=== PATIENT | male | born 1960 | race African-American/Black ===

== ENCOUNTER 2017-01-05 15:53 | Emergency (ER) | payer SELFPAY ==
[~2017-01-05] VITALS: Ht 172.7 cm; Wt 75.0 kg
[2017-01-05 19:00] VITALS: BP 162/98
[2017-01-05 19:28] LABS: BASOPHILS % 0.6 % (0.0-2.0); EOSINOPHILS % 0.3 % (0.0-5.0); HEMATOCRIT. 40.9 % (42.0-52.0); HEMOGLOBIN. 13.5 g/dL (14.0-18.0); LYMPHOCYTES % 14.6 % (20.0-50.0); MEAN CORPUSCULAR HEMOGLOBIN 29.3 pg (28.0-32.0); MEAN CORPUSCULAR VOLUME 88.6 fL (80.0-94.0); MEAN PLATELET VOLUME 7.1 fl (7.4-10.4); MONOCYTES % 5.7 % (2.0-8.0); NEUTROPHILS % 78.8 % (40.0-76.0); PLATELET 384 x1000/uL (130-400); RED BLOOD CELL COUNT 4.61 mill/uL (4.7-6.1); RED CELL DISTRIBUTION WIDTH 15.3 % (11.6-14.6)
[2017-01-05 19:35] LABS: CARBON DIOXIDE 29 mEq/L (21-32); CHLORIDE 100 mEq/L (98-107)
[2017-01-05 19:39] LABS: ETHANOL BLOOD < 10 mg/dL
== END 2017-01-05 21:06 | disposition home or self-care (01) ==
LOC: ER 16:04
DX: F11.10 Opioid abuse, uncomplicated (principal); E11.9 Type 2 diabetes mellitus without complications; I10 Essential (primary) hypertension; M54.5 Low back pain
CPT/HCPCS: 36415; 80053; 85025; 93005; 99285; G0482

== ENCOUNTER 2019-09-04 18:54 | Emergency (ER) | payer MEDICAID, MEDICARE, OTHER ==
[~2019-09-04] VITALS: Ht 180.3 cm; Wt 82.0 kg
[2019-09-04] MEDS ORDERED: SODIUM CHLORIDE 0.9% 1,000 ML IV ONE (19:41)
[2019-09-04] MEDS ORDERED: ASPIRIN 81MG TABLET PO ONE (19:45)
[2019-09-04] MEDS ORDERED: NITROGLYCERIN 0.4MG TABLET SL SL PRN (19:45)
[2019-09-04] MEDS ORDERED: DEXTROSE 50% WATER 50ML SYRINGE IV ONE (19:45)
[2019-09-04 20:58] LABS: BASOPHILS % 0.6 % (0.0-2.0); EOSINOPHILS % 2.1 % (0.0-5.0); HEMATOCRIT. 35.3 % (42.0-52.0); HEMOGLOBIN. 11.7 g/dL (14.0-18.0); LYMPHOCYTES % 17.1 % (20.0-50.0); MEAN CORPUSCULAR HEMOGLOBIN 29.2 pg (28.0-32.0); MEAN PLATELET VOLUME 7.5 fl (7.4-10.4); MONOCYTES % 7.8 % (2.0-8.0); NEUTROPHILS % 72.4 % (40.0-76.0); PLATELET 263 x1000/uL (130-400); RED BLOOD CELL COUNT 4.01 mill/uL (4.7-6.1); RED CELL DISTRIBUTION WIDTH 16.3 % (11.6-14.6)
[2019-09-04 21:03] LABS: CHLORIDE 106 mEq/L (98-107)
[2019-09-04 21:05] LABS: INR 1.1; PARTIAL THROMBOPLASTIN TIME 32.2 sec (23.4-31.0)
[2019-09-04 21:08] LABS: ETHANOL BLOOD < 10 mg/dL
[2019-09-04] MEDS ORDERED: GUAIFENESIN 200MG/10ML SUGAR FREE UDC PO PRN (23:30)
[2019-09-04] MEDS ORDERED: CLONIDINE 0.2MG TABLET PO ONE (23:30)
[2019-09-04] MEDS ORDERED: MAGNESIUM/ALUMINUM HYDROXIDE/SIMETHICONE 30ML UDC PO PRN (23:30)
[2019-09-04] MEDS ORDERED: DEXTROSE 50% WATER 50ML SYRINGE IV PRN (23:30)
[2019-09-04] MEDS ORDERED: CLONIDINE 0.1MG TABLET PO PRN (23:30)
[2019-09-04] MEDS ORDERED: LORAZEPAM 2MG/ML CPJ IV PRN (23:30)
[2019-09-04] MEDS ORDERED: IPRATROPIUM/ALBUTEROL 0.5-3(2.5)MG/3ML NEB NEB PRN (23:30)
[2019-09-04] MEDS ORDERED: DIPHENHYDRAMINE 50MG/ML VIAL IV PRN (23:30)
[2019-09-04] MEDS ORDERED: NA PHOS,M-B/NA PHOS,DI-BA ENEMA 118ML PR PRN (23:30)
[2019-09-04] MEDS ORDERED: ENOXAPARIN 40MG/0.4ML SYR SUBCUT SCH (23:30)
[2019-09-04] MEDS ORDERED: ACETAMINOPHEN 325MG TABLET PO PRN (23:30)
[2019-09-04] MEDS ORDERED: ONDANSETRON HCL 4MG/2ML INJ IV PRN (23:30)
[2019-09-04] MEDS ORDERED: DOCUSATE SODIUM 100MG CAPSULE PO PRN (23:30)
[2019-09-05 04:52] LABS: CHLORIDE 105 mEq/L (98-107)
[2019-09-05 04:54] LABS: HEMATOCRIT. 38.7 % (42.0-52.0); HEMOGLOBIN. 13.2 g/dL (14.0-18.0); MEAN CORPUSCULAR HEMOGLOBIN 29.9 pg (28.0-32.0); MEAN CORPUSCULAR VOLUME 87.8 fL (80.0-94.0); PLATELET 241 x1000/uL (130-400); RED BLOOD CELL COUNT 4.41 mill/uL (4.7-6.1); RED CELL DISTRIBUTION WIDTH 16.2 % (11.6-14.6)
[2019-09-05 04:58] LABS: LDL CHOLESTEROL 76 mg/dL (5-100)
[2019-09-05 05:00] LABS: HDL CHOLESTEROL 52 mg/dL (40-59); T4 FREE 1.17 ng/dL (0.76-1.46)
[2019-09-05 05:34] LABS: PLATELET ESTIMATE NORMAL
[2019-09-05] MEDS ORDERED: SODIUM CHLORIDE 0.9% INJ 3ML FLUSH IVF SCH (06:00)
[2019-09-05] MEDS ORDERED: HYDRALAZINE 20MG/ML VIAL IV PRN (06:20)
[2019-09-05 06:41] LABS: CREATINE KINASE 74 IU/L (39-308)
[2019-09-05 06:42] LABS: CREATINE KINASE MB FRACTION < 1.0 ng/mL (0.5-3.6)
[2019-09-05] MEDS ORDERED: INSULIN LISPRO 100 UNITS/ML SUBCUT SCH (08:20)
[2019-09-05] MEDS: BLOOD SUGAR DIAGNOSTIC STRIP TEST SCH ×2 (08:33→13:01)
[2019-09-05 08:41] LABS: T4 FREE 1.13 ng/dL (0.76-1.46)
[2019-09-05] MEDS ORDERED: ASPIRIN 81MG TABLET PO SCH (09:00)
[2019-09-05 14:16] VITALS: BP 167/98
== END 2019-09-05 14:24 | disposition left against medical advice (07) ==
LOC: ER 18:54 → CANRESERV 09-05 13:39 → ENRESERV 09-05 13:39 → CANBEDREQ 09-05 14:09 → ER 09-05 14:24
DX: R07.89 Other chest pain (principal); E11.649 Type 2 diabetes mellitus with hypoglycemia without coma; I10 Essential (primary) hypertension; D64.9 Anemia, unspecified; R94.39 Abnormal result of other cardiovascular function study; F11.10 Opioid abuse, uncomplicated; F17.210 Nicotine dependence, cigarettes, uncomplicated
CPT/HCPCS: 36415; 71045; 80053; 80061; 80320; 82550; 82553; 82962; 83036; 83880; 84439; 84443; 84484; 85025; 85610; 85730; 93005; 93970; 96374; 99285; J0360; J7030; G0480